=== PATIENT | female | born 1990 | race Caucasian/White ===

== ENCOUNTER 2017-05-12 08:58 | Emergency (ER) | payer OTHER ==
[~2017-05-12] VITALS: Ht 162.6 cm; Wt 51.0 kg
[~2017-05-12 08:58] MED LIST: NOHOMEMEDS
[2017-05-12] MEDS ORDERED: ATARAX,VISTARIL25 MG PO (11:52)
[2017-05-12] MEDS ORDERED: NAPROSYN500 MG PO (11:52)
[2017-05-12 12:11] VITALS: BP 115/86
== END 2017-05-12 12:12 | disposition home or self-care (01) ==
LOC: EME 08:58
DX: R07.89 Other chest pain (principal); M54.6 Pain in thoracic spine; F43.0 Acute stress reaction; F41.1 Generalized anxiety disorder; J45.909 Unspecified asthma, uncomplicated; F17.200 Nicotine dependence, unspecified, uncomplicated; Z71.6 Tobacco abuse counseling; Z80.1 Family history of malignant neoplasm of trachea, bronchus and lung
CPT/HCPCS: 71020; 93005; 99281; 99284